=== PATIENT | male | born 1945 | race Caucasian/White ===

== ENCOUNTER 2023-10-27 12:57 | Emergency (ER) | payer OTHER ==
[~2023-10-27] VITALS: Ht 175.3 cm; Wt 89.4 kg
[2023-10-27] MEDS ORDERED: IV NS 0.9% 250 ML IV ONE (13:11)
[2023-10-27] MEDS ORDERED: IOHEXOL-350 100 ML VIAL IV ONE (13:11)
[2023-10-27 13:23] LABS: BASOPHILS # (AUTO) 0.1 K/uL (0.0-0.2); BASOPHILS % (AUTO) 1.4 % (0.0-2.0); EOSINOPHILS % (AUTO) 0.9 % (0.0-6.0); HEMATOCRIT 36 % (39-51); HEMOGLOBIN 11.6 g/dL (13.5-17.5); LYMPHOCYTES # (AUTO) 1.2 K/uL (0.8-4.8); LYMPHOCYTES % (AUTO) 27.5 % (20.0-44.0); MEAN CORPUSCULAR HEMOGLOBIN 30 PG (26.0-33.0); MEAN CORPUSCULAR HGB CONC 32 g/dl (31.0-36.0); MEAN CORPUSCULAR VOLUME 92 fL (80-96); MONOCYTES # (AUTO) 0.4 K/uL (0.1-1.30); MONOCYTES % (AUTO) 9.3 % (2.0-12.0); NEUTROPHILS # (AUTO) 2.6 K/uL (1.8-8.9); NEUTROPHILS % (AUTO) 60.9 % (43.0-81.0); PLATELET COUNT (AUTO) 223 K/uL (150-450); RED BLOOD CELL COUNT(AUTO) 3.92 MIL/uL (4.5-6.0); RED CELL DISTRIBUTION WIDTH 16.4 % (11.5-15.0); WHITE BLOOD COUNT (AUTO) 4.3 K/uL (4.3-11.0)
[2023-10-27 13:32] LABS: CARBON DIOXIDE 28 mmol/L (21-32); CHLORIDE 105 mmol/L (98-107); CREATININE 0.9 mg/dL (0.6-1.3); GLUCOSE 172 mg/dL (74-106); POTASSIUM 3.7 mmol/L (3.5-5.1); SODIUM SERUM 139 mmol/L (136-145); UREA NITROGEN, BLOOD 11 mg/dL (7-18)
[2023-10-27 13:36] LABS: INR 1.22 (0.91-1.10); PARTIAL THROMBOPLASTIN TIME 26.8 SEC (24.3-34.3); PROTHROMBIN TIME 12.8 SECS (9.2-11.1)
[2023-10-27 13:38] LABS: ALANINE AMINOTRANSFERASE 29 U/L (12-78); ALBUMIN 3.5 g/dL (3.4-5.0); ALKALINE PHOSPHATASE 63 U/L (46-116); ASPARTATE AMINOTRANSFERASE 20 U/L (15-37); BILIRUBIN,DIRECT 0.3 mg/dL (0.0-0.2); BILIRUBIN,TOTAL 1.1 mg/dL (0.2-1.0); CALCIUM, SERUM 8.6 mg/dL (8.5-10.1); TOTAL PROTEIN, SERUM 6.5 g/dL (6.4-8.2)
[2023-10-27] MEDS ORDERED: APIX5TAB PO (13:44)
[2023-10-27] MEDS ORDERED: CARV12.5 PO (13:44)
[2023-10-27] MEDS ORDERED: AMIO200T5 PO (13:44)
[2023-10-27] MEDS ORDERED: CHOL100043 PO (13:44)
[2023-10-27] MEDS ORDERED: ASPIRIN 325 MG TABLET ONE (14:56)
[2023-10-27] MEDS: ASPIRIN 325 MG TABLET PO ONE (14:58)
[2023-10-27 15:30] VITALS: BP 135/110; TEMP 98.4; O2SAT 99
== END 2023-10-27 15:16 | disposition left against medical advice (07) ==
LOC: ER 13:06
DX: G45.9 Transient cerebral ischemic attack, unspecified (principal); R73.9 Hyperglycemia, unspecified; R53.1 Weakness; R47.81 Slurred speech; R41.0 Disorientation, unspecified; R29.810 Facial weakness; Z86.73 Personal history of transient ischemic attack (TIA), and cerebral infarction without residual deficits
CPT/HCPCS: 99291; 70498; 93005; 70496; 85025; 80048; 80076; 36415; 84484; 85730; 82962; 70450; J7050; Q9967

== ENCOUNTER 2025-02-27 04:42 | Emergency (ER) | payer OTHER ==
[~2025-02-27] VITALS: Ht 175.3 cm; Wt 89.4 kg
[~2025-02-27 04:42] MED LIST: AMIO200T5 PO; APIX5TAB PO; CARV12.5 PO; CHOL100043 PO
[2025-02-27] MEDS: IPRATROPIUM NEB FS 0.5 MG/2.5 ML AMPUL.NEB NEB ONE (04:53)
[2025-02-27] MEDS: ALBUTEROL FS 2.5 MG/3 ML VIAL.NEB NEB ONE (04:53)
[2025-02-27] MEDS ORDERED: ALBUTEROL FS 2.5 MG/3 ML VIAL.NEB ONE (04:54)
[2025-02-27] MEDS ORDERED: IPRATROPIUM NEB FS 0.5 MG/2.5 ML AMPUL.NEB ONE (04:54)
[2025-02-27 04:58] VITALS: O2SAT 99
[2025-02-27] MEDS ORDERED: VANCOMYCIN 1 GM /D5W 250 ML PB IV ONE (05:09)
[2025-02-27] MEDS ORDERED: CEFEPIME 1 GM VIAL ONE (05:09)
[2025-02-27 05:13] VITALS: O2SAT 100
[2025-02-27 05:14] VITALS: O2SAT 99
[2025-02-27] MEDS: CEFEPIME 1 GM in IV D5W 50 ML IV ONE (05:15)
[2025-02-27 05:17] LABS: PLATELET COUNT (AUTO) 186 K/uL (150-450); RED BLOOD CELL COUNT(AUTO) 4.07 MIL/uL (4.5-6.0); RED CELL DISTRIBUTION WIDTH 17.5 % (11.5-15.0); WHITE BLOOD COUNT (AUTO) 4.4 K/uL (4.3-11.0)
[2025-02-27 05:25] LABS: CALCIUM, SERUM 8.5 mg/dL (8.5-10.1); CREATININE 1.4 mg/dL (0.6-1.3); SODIUM SERUM 140 mmol/L (136-145); UREA NITROGEN, BLOOD 18 mg/dL (7-18)
[2025-02-27 05:29] VITALS: O2SAT 100
[2025-02-27 05:31] LABS: INR 1.35 (0.91-1.10)
[2025-02-27 05:32] LABS: ASPARTATE AMINOTRANSFERASE 58 U/L (15-37); TOTAL PROTEIN, SERUM 6.6 g/dL (6.4-8.2)
[2025-02-27 05:33] LABS: LACTIC ACID 3.2 mmol/L (0.4-2.0)
[2025-02-27] MEDS ORDERED: IOHEXOL-350 100 ML VIAL IV ONE (05:49)
[2025-02-27] MEDS ORDERED: CT SWABBABLE VALVE TRANS SET 1 EA INFUS.SET MC ONE (05:49)
[2025-02-27] MEDS ORDERED: IV NS 0.9% 0 ML IV ONE (05:49)
[2025-02-27] MEDS: VANCOMYCIN 1 GM in IV D5W 250 ML IV ONE (05:50)
[2025-02-27] MEDS: IV NS 0.9% 500 ML BAG IV ONE (06:08)
[2025-02-27 07:30] VITALS: BP 155/119; TEMP 98.1; O2SAT 100
== END 2025-02-27 07:31 | disposition left against medical advice (07) ==
LOC: ER 04:43
DX: A41.9 Sepsis, unspecified organism (principal); R65.21 Severe sepsis with septic shock; J96.01 Acute respiratory failure with hypoxia; J44.9 Chronic obstructive pulmonary disease, unspecified; N40.0 Benign prostatic hyperplasia without lower urinary tract symptoms; Z79.01 Long term (current) use of anticoagulants; Z79.899 Other long term (current) drug therapy; Z86.73 Personal history of transient ischemic attack (TIA), and cerebral infarction without residual deficits; Z87.440 Personal history of urinary (tract) infections; Z86.79 Personal history of other diseases of the circulatory system; Z88.8 Allergy status to other drugs, medicaments and biological substances; Z91.013 Allergy to seafood; Z20.822 Contact with and (suspected) exposure to COVID-19
CPT/HCPCS: 99285; 96365; 71045; 96375; 87426; 96368; 93005; 87804 ×2; 84145; 85025; 80048; 87040 ×2; 83605; 80076; 85378; 36415; 84484; 85730; 83880; 94640; J2919; J3373 ×2; J7060 ×2; A4223; J0692 ×2; J7050; Q9967